=== PATIENT | female | born 1955 | race Caucasian/White ===

== ENCOUNTER 2019-02-25 08:30 | Day surgery (SDC) | payer OTHER ==
[~2019-02-25] VITALS: Ht 154.9 cm; Wt 45.8 kg
[~2019-02-25 08:30] MED LIST: BLACK COHOSH200 MG PO; BUSPIRONE HCL10 MG PO; CEPHALEXIN500 MG PO; DHEA25 MG PO; ESTRACE0.5 MG PO; FOLIC ACID1 MG PO; LORAZEPAM0.5 MG PO; OMEPRAZOLE20 MG PO; PYRIDIUM200 MG PO; SEROQUEL25 MG PO; TYLENOL EXTRA500 MG PO; VITAMIN D-32000 UNIT PO
[2019-02-25] MEDS ORDERED: CYMBALTA30 MG PO (08:50)
[2019-02-25] MEDS ORDERED: WELLBUTRIN SR100 MG PO (08:50)
[2019-02-25] MEDS ORDERED: VITAMIN D31000 UNIT PO (08:51)
[2019-02-25] MEDS ORDERED: VITAMIN B-12250 MC2 PO (08:51)
--- NOTE | 2019-02-25 10:43 | NUR ---
02/25/19 1043 Mayte Khan 1039 PATIENT ARRIVES TO PACU AWAKE OFF/ON, BUT VERY DROWSY. RESP EVEN AND UNLABORED. NC AT 2 LITERS. TURNED OFF AFTER ARRIVAL TO PACU.
--- NOTE | 2019-02-25 18:23 | OR ---
[facility] [address] [place], [place] [address] Signed DATE OF OPERATION: 02/25/2019 SURGEON: Marbin Russell MD PREOPERATIVE DIAGNOSES: 1. Internal hemorrhoids. 2. Sister with history of colonic polyps. 3. 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 4. Rectal hyperplastic polyps. 5. Change in bowel habits with alternating constipation and diarrhea. 6. Weight loss (7 pounds). POSTOPERATIVE DIAGNOSES: 1. Minimal internal hemorrhoids. 2. Tattoo distal right colon. PROCEDURE: Colonoscopy with random cold biopsies. ESTIMATED BLOOD LOSS: None. INDICATIONS: Hugh is a 63-year-old female, who came to us in February of 2018 for a colonoscopy. She had small internal hemorrhoids. She reminded me her sister had colonic polyps. She had a fairly significant tubulovillous adenomatous polyp in the distal right colon on the back of the fold. It took some technical effort to get that removed. We left a tattoo in that area. We wanted to come back and looked that over completely. She also had a few hyperplastic polyps in the rectum. She had very small internal hemorrhoid columns. No evidence of any diverticulosis. In the meantime, she has had a change in bowel habits with alternating constipation and diarrhea. She said the lab work and stool studies were done, but still pending and are in the office. She was asked to come back to see me then for that followup colonoscopy. I met with Hugh in the office. I gave her a pamphlet on colonoscopy. She recalls the test quite nicely along with its risks including, but not limited to gas bloating, crampy abdominal pain, bleeding, perforation requiring surgery, and missed diagnosis. She also remembers the need for IV conscious sedation. She said she was out of it for a day or two after the drugs. We explained to Hugh we just given up to keep people sedated sufficiently for the test. We will do our best to give her a small amount. She had expressed understanding and Electronically Signed By: MARBIN RUSSELL MD 02/25/19 1823 PATIENT NAME: HUGH GOMEZ OPERATIVE REPORT DATE OF : 57 REPORT #: [id number] PHYSICIAN: MARBIN RUSSELL MD PCP: SOMMER MILLER REPORT IS CONFIDENTIAL AND NOT TO BE RELEASED WITHOUT AUTHORIZATION [facility] [address] [place], [place] [address] Signed wished to proceed. PROCEDURE NOTE: Hugh was taken in to the endoscopy suite and placed in the left lateral decubitus position. She was given a total of 6 mg of Versed and 125 mcg of fentanyl. A digital rectal exam was performed and this was unremarkable. The adult colonoscope was inserted and advanced under direct visualization of camera. She has somewhat angulated splenic flexure. It takes a few minutes to get through that area. She required some extra sedation and abdominal compression. Her transverse colon and right colon are particularly long. Her prep was quite excellent. We could easily see the appendiceal orifice and the ileocecal valve. The scope was slowly withdrawn. Pictures were taken throughout for photodocumentation. We took several random biopsies throughout the colon because of the history of diarrhea. We could easily see her tattoo in the distal right colon. We carefully looked over that fold circumferentially several times. We could not see any evidence of any recurrent or persistent polypoid tissue. The scope was continued to be withdrawn all the way back into the rectum. There was no diverticulosis. No other polyps. Upon retroflexion of the scope, she has very minimal internal hemorrhoid tissue. Gas was then suctioned out. The colonoscope removed. Hugh tolerated the procedure quite well. RECOMMENDATIONS: I will see Hugh back in my office in 7 to 14 days to review her biopsy results. Marbin Russell MD ALB/MODL /[id number] cc: MD Sommer Dorsey PA Copies: MARBIN RUSSELL MD Electronically Signed By: MARBIN RUSSELL MD 02/25/19 1823 PATIENT NAME: HUGH GOMEZ OPERATIVE REPORT DATE OF : 57 REPORT #: [id number] PHYSICIAN: MARBIN RUSSELL MD PCP: SOMMER MILLER REPORT IS CONFIDENTIAL AND NOT TO BE RELEASED WITHOUT AUTHORIZATION [facility] [address] [place] [address] [place] [address] Signed SOMMER MILLER ~ Electronically Signed By: MARBIN RUSSELL MD 02/25/19 1823 PATIENT NAME: HUGH GOMEZ OPERATIVE REPORT DATE OF : 57 REPORT #: [id number] PHYSICIAN: MARBIN RUSSELL MD PCP: SOMMER MILLER REPORT IS CONFIDENTIAL AND NOT TO BE RELEASED WITHOUT AUTHORIZATION
--- NOTE | 2019-02-26 15:56 | PATH ---
[facility] [address] [place], [place] [address] Signed SPECIMEN(S): A COLON BIOPSY SPECIMEN SOURCE: A. COLON BIOPSY CLINICAL HISTORY: Preop: History of tubulovillous adenomatous polyp Feb 2018, change in bowel habits, diarrhea. Postop: Internal hemorrhoids. MICROSCOPIC DESCRIPTION: Sections reveal biopsies of colonic mucosa. The epithelial surface is intact and retains mucus-secreting ability. The basement membrane is not thickened. Glands are simple and tubular and reach all the way to muscularis mucosa. Lamina propria is minimal expanded by a population of plasma cells, lymphocytes, eosinophils and a few scattered neutrophils. No excess intra-epithelial lymphocytes, crypt abscesses, areas of fibrosis or granulomatous pseudomembranes are seen. There is no evidence of malignancy or atypia. LJA:cab FINAL PATHOLOGIC DIAGNOSIS: Mucosa, colon, random biopsy: - Minimal non-destructive chronic colitis without other distinguishing features. LJA:cab:C2NR GROSS DESCRIPTION: The specimen, labeled "RR, colon biopsy," is received in formalin and consists of four, 0.2-0.3 cm alvarez tissue fragments. Specimen is entirely submitted in cassette (A1). AM (under the direct supervision of a pathologist) The Gross Description was prepared using a voice recognition system. The report was reviewed for accuracy; however, sound-alike word errors, addition and/or deletions may occur. If there is any question about this report, please contact Client Services. PERFORMING LABORATORY: The technical component was performed by [facility], [address] [place] [id number] (Equip Maint Eng: Ynes Mondragon MD; CLIA# [id number]). [facility], [address] [address] (Equip Maint Eng: Abhishek Kay MD; CLIA# PATIENT NAME: HUGH GOMEZ PATHOLOGY DATE OF : 57 REPORT #: [id number] PHYSICIAN: DEYSI PATHOLOGY PCP: SAM MILLER REPORT IS CONFIDENTIAL AND NOT TO BE RELEASED WITHOUT AUTHORIZATION [address] [address] Signed [id number]). Diagnostician: Abhishek Kay MD Pathologist Electronically Signed 02/26/2019 Copies: ~ PATIENT NAME: HUGH GOMEZ PATHOLOGY DATE OF : 57 REPORT #: [id number] PHYSICIAN: DEYSI THOMPSON PCP: SAM MILLER REPORT IS CONFIDENTIAL AND NOT TO BE RELEASED WITHOUT AUTHORIZATION
== END 2019-02-25 11:10 | disposition home or self-care (01) ==
LOC: OPS 08:30 → DS 09:45 → OPS 09:45
PROVIDERS: Colon & Rectal Surgery
PROC: 0DBE8ZX Excision of Large Intestine, Via Natural or Artificial Opening Endoscopic, Diagnostic (ICD-10-PCS; principal; 2019-02-25 09:45)
DX: K52.9 Noninfective gastroenteritis and colitis, unspecified (principal); K64.8 Other hemorrhoids; R63.4 Abnormal weight loss; E78.00 Pure hypercholesterolemia, unspecified; E55.9 Vitamin D deficiency, unspecified; E03.9 Hypothyroidism, unspecified; F32.9 Major depressive disorder, single episode, unspecified; F41.9 Anxiety disorder, unspecified; Z86.010 Personal history of colon polyps; Z83.71 Family history of colonic polyps; Z98.890 Other specified postprocedural states; Z79.899 Other long term (current) drug therapy
CPT/HCPCS: 99153; G0500; J2250; J3010; J7121

== ENCOUNTER 2024-03-05 13:23 | Emergency (ER) | payer MEDICARE ==
[~2024-03-05] VITALS: Ht 154.9 cm; Wt 51.0 kg
[~2024-03-05 13:23] MED LIST changes: +CYMBALTA30 MG PO; +VITAMIN B-12250 MC2 PO; +VITAMIN D31000 UNIT PO; +WELLBUTRIN SR100 MG PO
[2024-03-05] MEDS ORDERED: SODIUM CHLORIDE 0.9% 500 ML IV ONE (13:45)
[2024-03-05] MEDS ORDERED: BUSPIRONE HCL5 MG PO (13:45)
[2024-03-05] MEDS ORDERED: BUPROPION XL150 MG PO (13:45)
[2024-03-05] MEDS ORDERED: FAMOTIDINE 20 MG/ 2 ML VIAL IV ONE (13:45)
[2024-03-05] MEDS ORDERED: diphenhydrAMINE HCL 50 MG/ML VIAL IV ONE (13:45)
[2024-03-05] MEDS ORDERED: DULOXETINE HCL30 MG PO (13:45)
[2024-03-05] MEDS ORDERED: methylPREDNISolone SOD SUCC 125 MG/2 ML VIAL IV ONE (13:45)
[2024-03-05 14:02] LABS: BASOPHILS 0.3 % (0-2); EOSINOPHILS 0.8 % (0-6); HEMATOCRIT 46.4 % (35.0-50.0); HEMOGLOBIN 15.7 g/dL (12.0-18.0); LYMPHOCYTES 31.1 % (24-44); MCH 30.6 (27-36); MCHC 33.9 g/dl (30-36); MCV 90.3 fl (81-99); NEUTROPHILS 60.8 % (39-80); PLATELET COUNT 292 K/uL (140-440); RBC 5.14 M/ul (4.3-5.7); RDW 12.4 (10.5-15.0)
[2024-03-05 14:17] LABS: ALBUMIN 3.7 g/dL (3.4-5.0); ALBUMIN/GLOBULIN RATIO 1.09 (1.1-2.4); ANION GAP 13.9 (7-21); BILIRUBIN, TOTAL 0.3 ng/dL (0.2-1.0); BUN/CREATININE RATIO 9.9 (6.0-28.6); CALCIUM 9.4 mg/dL (8.5-10.1); CREATININE, SERUM 1.11 mg/dL (0.55-1.02); POTASSIUM 3.9 mmol/L (3.5-5.1); PROTEIN, TOTAL 7.1 g/dL (6.4-8.2)
[2024-03-05] MEDS ORDERED: EPIPEN 2-P0.3 MG/0.3 IM (15:46)
[2024-03-05] MEDS ORDERED: PREDNISONE20 MG PO (15:46)
[2024-03-05 15:54] VITALS: BP 119/68
== END 2024-03-05 15:54 | disposition home or self-care (01) ==
LOC: ED 13:23
PROVIDERS: Emergency Medicine
DX: T63.441A Toxic effect of venom of bees, accidental (unintentional), initial encounter (principal); L29.89 Other pruritus; R23.8 Other skin changes; Z79.899 Other long term (current) drug therapy
CPT/HCPCS: 36415; 80053; 85025; 96374; 96375; 99283-25; J1200; J2919; J7040

== ENCOUNTER 2024-06-18 08:55 | Day surgery (SDC) | payer MEDICARE, OTHER ==
[2024-06-12 10:18] VITALS: BP 125/74
[~2024-06-18] VITALS: Ht 154.9 cm; Wt 50.9 kg
[~2024-06-18 08:55] MED LIST changes: +BUPROPION XL150 MG PO; +BUSPIRONE HCL5 MG PO; +DULOXETINE HCL30 MG PO; +EPIPEN 2-P0.3 MG/0.3 IM; +IBLOOD GLUCOSE TEST STRIP 1 EA TEST VI PRN; +LACTATED RINGER'S 1,000 ML IV SCH; +LIDOCAINE HCL 1% 5 ML SDV INJ ONE; +OSTERA TABLET1 EACH PO; +PREDNISONE20 MG PO; +RENA-VITE RX T1 EACH PO
[2024-06-18 09:08] VITALS: BP 121/57
--- NOTE | 2024-06-18 11:46 | NUR ---
1100-PT LAYING IN BED AWAKE. UPDATED PT SURGICAL WAIT TIME. NO OTHER NEEDS AT THIS TIME. AT BEDSIDE. NO OTHER NEEDS AT THIS TIME. CALL LIGHT WITHIN REACH.
[2024-06-18] MEDS ORDERED: LIDOCAINE HCL 2% 5 ML SDV ONE (12:31)
[2024-06-18] MEDS ORDERED: propofoL 200 MG/20 ML VIAL ONE ×2 (12:31→13:11)
[2024-06-18] MEDS ORDERED: ePHEDrine sulfate 50 MG/ML AMP ONE (12:56)
--- NOTE | 2024-06-18 13:34 | NUR ---
06/18/24 1334 Talisha Morales 1326-PATIENT ARRIVED TO PACU ON 2L NC RR EVEN. PATIENT REACTIVE TO VERBAL STIMULI OPENING EYES ORIENTED TO PACU LAYING LEFT LATERAL. SR. IVF INFUSING. ABDOMEN SOFT 1328-PATIENT AWAKE MOVING LEGS IN BED HOB ELEVATED. ENCOURAGED TO PASS GAS. 1333-PATIENT AWAKE REPORTS "STOMACH HURTS" ENCOURAGED TO PASS GAS. PLACED ON RA 100% RR EVEN
[2024-06-18 14:13] VITALS: BP 132/72
--- NOTE | 2024-06-18 14:39 | OR ---
[facility] [address] [place], [place] [address] Signed DATE OF OPERATION: 06/18/2024 SURGEON: Marbin Russell MD PREOPERATIVE DIAGNOSES: 1. Epigastric abdominal pain and heartburn. 2. Personal history of colonic polyps in 2018. POSTOPERATIVE DIAGNOSES: 1. Mild gastroduodenitis. 2. Mild to moderate distal esophagitis. 3. Small hiatal hernia. 4. Long redundant colon. 5. 8 x 12 mm sessile polyp distal right colon at tattoo (snare, clips x3). 6. 4 mm polyp distal right colon. PROCEDURES: 1. EGD with CLOtest and biopsies of the duodenum, pyloric bulb, antrum and distal esophagus. 2. Colonoscopy with snare polypectomy, hot biopsy and application of clips x3. ESTIMATED BLOOD LOSS: None. INDICATIONS: Hugh is a 68-year-old female, asked to see me for both upper and lower endoscopy. She told me she has a long history of OCD and panic attacks. She has been worried about various things and ended up with heartburn and significant epigastric abdominal pain. Her H pylori was negative. She took omeprazole and that helped. She is worried she might have an ulcer. However, she is inconsistent with using the omeprazole. She says sometimes she is upset enough she actually gets diarrhea. Thankfully, that is resolved currently. In addition, I helped her with a colonoscopy in 2018 and again in 2019. Unfortunately, we could not access the old records on the computer that day in the office. She told me I was worried about the polyp, so I brought her back a year later. She tells me there is no family history of colon cancer or polyps. Overall, she thinks she is feeling better. In the office, I gave her pamphlets on both upper and lower endoscopy. We had reviewed the nature of the two tests. There is risk including, but not limited to gas bloating, crampy abdominal pain, bleeding, perforation requiring surgery, and missed diagnosis. We also reviewed the written instructions for the bowel prep line by line. It is the same bowel prep she took two times previously. In Electronically Signed By: MARBIN RUSSELL MD 06/18/24 1439 PATIENT NAME: HUGH GOMEZ OPERATIVE REPORT DATE OF : 57 REPORT #: [id number] PHYSICIAN: MARBIN RUSSELL MD PCP: SAM MILLER REPORT IS CONFIDENTIAL AND NOT TO BE RELEASED WITHOUT AUTHORIZATION [facility] [address] [place], [place] [address] Signed addition, because of her significant anxiety, panic attacks and other issues, we asked for monitored anesthesia care with propofol infusion. She thought that was a house decision. She actually did very well in that regard today. We actually needed it because of her long redundant colon. She did require preoperative blood work and an EKG. She understands an adult person has to take her home afterwards. She had expressed understanding and wished to proceed. DESCRIPTION OF PROCEDURE: Hugh was taken into the endoscopy suite and placed in the supine semi-recumbent position. A bite block was utilized for the case. The posterior oropharynx was anesthetized with lidocaine spray. A bite block was used for the case. The adult gastroscope was introduced and advanced under direct visualization of the camera without difficulty into the duodenum. Because of the intermittent history of diarrhea, we went ahead and took a biopsy of the duodenum. We could see some mild inflammation in the pyloric bulb and throughout the stomach. We went ahead and took a biopsy of the pyloric bulb as well as the antrum for pathologic review. An additional biopsy came out of the antrum for CLOtest. Upon retroflexion of the scope, we could easily see a small hiatal hernia. The scope was withdrawn up through the area of the GE junction, which was compliant without stricture. She was coughing just a little bit and we could not really measure the hiatal hernia to any significant degree. I would say no more than 3 cm. She does have some mild disruption and irritation along the Z-line. She also had some streaky inflammatory changes coming up from the Z-line into the distal esophagus. There was no Mehta's mucosa. We went ahead and took a biopsy in the distal esophagus. The middle and upper esophagus were unremarkable. Her vocal cords and arytenoids were unremarkable. After this, the gas was suctioned out and the gastroscope removed. Hugh tolerated the procedure quite well. Hugh was then rotated into the left lateral decubitus position. She was maintained on propofol infusion per our nurse senior manager quality assurance. A digital rectal exam was performed. This was unremarkable. No external hemorrhoids. Good sphincter tone. No masses. The adult colonoscope was then introduced and advanced all around into the cecum under direct visualization of the camera. She has a long redundant colon and her colon is somewhat narrow because she is so slight of build. It took extra propofol as well as abdominal compression to advance the scope. We had to pause multiple times because of the bradycardia. Thankfully, her prep was quite good. We could easily see the appendiceal orifice and the ileocecal valve. The scope was then slowly withdrawn. She had two polyps in her distal right colon. One was associated with the previous tattoo. The small polyp was maybe 4 mm in diameter and we easily removed it with the hot biopsy forceps. We had to use the snare twice to get the sessile polyp out overlying the tattoo. It was probably 8 x 12 mm, maybe slightly larger. We were able to capture it in our net and put it in the same jar. We went back and it left a fairly deep and large defect in the mucosa, so we brought it together with three clips. The scope was then Electronically Signed By: MARBIN RUSSELL MD 06/18/24 1439 PATIENT NAME: HUGH GOMEZ OPERATIVE REPORT DATE OF : 57 REPORT #: [id number] PHYSICIAN: MARBIN RUSSELL MD PCP: SAM MILLER REPORT IS CONFIDENTIAL AND NOT TO BE RELEASED WITHOUT AUTHORIZATION [facility] [address] [place] [address] Signed withdrawn and we did not find any diverticula. The rectum was unremarkable. Upon retroflexion of the scope, really no additional pathology noted above the anal canal. After this, the gas was suctioned out and the colonoscope removed. Hugh tolerated the colonoscopy quite well. RECOMMENDATIONS: I will see Hugh back in my office in 7 to 14 days to review her results. She should always use monitored anesthesia care in the future particularly because of her long redundant colon. Marbin Russell MD ALB/MODL /[id number] cc: LEIXS Blackman MD Copies: SAM MILLER ANDREW L MD ~ Electronically Signed By: MARBIN RUSSELL MD 06/18/24 1439 PATIENT NAME: HUGH GOMEZ OPERATIVE REPORT DATE OF : 57 REPORT #: [id number] PHYSICIAN: MABRIN RUSSELL MD PCP: SAM MILLER REPORT IS CONFIDENTIAL AND NOT TO BE RELEASED WITHOUT AUTHORIZATION
--- NOTE | 2024-06-23 16:34 | PATH ---
[facility] [address] [place], [place] [address] Signed SPECIMEN(S): A DUODENAL BIOPSY SPECIMEN(S): B PYLORIC BULB BIOPSY SPECIMEN(S): C ANTRUM BIOPSY SPECIMEN(S): D DISTAL LOWER ESOPHAGUS BIOPSY SPECIMEN(S): E DISTAL RIGHT COLON POLYP SPECIMEN SOURCE: A. DUODENAL BIOPSY B. PYLORIC BULB BIOPSY C. ANTRUM BIOPSY D. DISTAL LOWER ESOPHAGUS BIOPSY E. DISTAL RIGHT COLON POLYP CLINICAL HISTORY: Epigastric pain, heartburn, history of colon polyps, history of diarrhea. Post gastritis, distal esophagitis, colon polyps. FINAL PATHOLOGIC DIAGNOSIS: A. Duodenal biopsy: - Benign duodenal mucosa, negative for specific diagnostic abnormality. B. Pyloric bulb biopsy: - Gastric mucosa with superficial mild chronic gastritis (gastric heterotopia). - Benign duodenal mucosa. - A Helicobacter pylori immunostain is negative for organisms. C. Antrum biopsy: - Benign gastric mucosa with superficial mild chronic gastritis. - Negative for evidence of Helicobacter organisms on routine HE-stained sections. D. Distal lower esophagus biopsy: - Benign esophageal epithelium, negative for increased epithelial eosinophils. - Negative for glandular mucosa. E. Distal right colon polyp: - Tubulovillous adenoma (multiple fragments). JVR:smn MICROSCOPIC EXAMINATION: Histologic sections of all submitted blocks are examined by light microscopy. These findings, together with the gross examination, support the pathologic diagnosis. A Helicobacter pylori immunostain is performed with appropriate positive and negative controls on block B1 and is negative for organisms. PATIENT NAME: HUGH GOMEZ PATHOLOGY DATE OF : 57 REPORT #: [id number] PHYSICIAN: DEYSI THOMPSON PCP: SAM MILLER REPORT IS CONFIDENTIAL AND NOT TO BE RELEASED WITHOUT AUTHORIZATION [facility] [address] [place], [place] [address] Signed JVR:jf GROSS DESCRIPTION: A. The specimen, labeled and designated "Georgi, R, duodenal biopsy," is received in formalin and consists of one alvarez soft tissue fragment, 0.4 cm. Entirely submitted in (A1). B. The specimen, labeled and designated "Georgi, R, pyloric bulb biopsy," is received in formalin and consists of two alvarez soft tissue fragments, ranging from 0.2-0.3 cm. Entirely submitted in (B1). C. The specimen, labeled and designated "Georgi, R, antrum biopsy," is received in formalin and consists of one alvarez soft tissue fragment, 0.7 cm. Entirely submitted in (C1). D. The specimen, labeled and designated "Georgi, R, distal lower esophagus biopsy," is received in formalin and consists of one alvarez soft tissue fragment, 0.4 cm. Entirely submitted in (D1). E. The specimen, labeled and designated "Georgi, R, distal right colon polyp," is received in formalin and consists of multiple alvarez soft tissue fragments, 0.2-1.5 cm. The largest polyp's inked black the suspected margin and sectioned. Entirely submitted in (E1). AB (under the direct supervision of a pathologist) The Gross Description was prepared using a voice recognition system. The report was reviewed for accuracy; however, sound-alike word errors, addition and/or deletions may occur. If there is any question about this report, please contact Client Services. ADDITIONAL NOTES: Immunohistochemical and/or in situ hybridization studies were performed on this case with the appropriate positive controls that react as expected. This test was developed and its performance characteristics determined by [facility]. It has not been cleared or approved by the U.S. Food and Drug Administration. The FDA has determined that such clearance or approval is not necessary. This test is used for clinical purposes. It should not be regarded as investigational or for research. [facility] is certified under the Clinical Laboratory Improvement Amendments of 1988 (CLIA) as qualified to perform high complexity clinical laboratory testing. This assay has not been validated for specimens that have been decalcified. PERFORMING LABORATORY: Technical component was performed by [facility], [facility] Slava Rubin, PATIENT NAME: HUGH GOMEZ PATHOLOGY DATE OF : 57 REPORT #: [id number] PHYSICIAN: CHANDNIMailbox JAY PCP: SAM MILLER REPORT IS CONFIDENTIAL AND NOT TO BE RELEASED WITHOUT AUTHORIZATION [facility] [address] [place] [address] [place] [address] (CLIA# [id number]). Professional interpretation was performed by [facility], [address] [place] [address], [place] [address] (CLIA#: [id number]). Diagnostician: Giuspepe Mcbride MD Pathologist Electronically Signed 06/23/2024 Copies: ~ PATIENT NAME: HUGH GOMEZ PATHOLOGY DATE OF : 57 REPORT #: [id number] PHYSICIAN: DEYSI PATHOLOGY PCP: SAM MILLER REPORT IS CONFIDENTIAL AND NOT TO BE RELEASED WITHOUT AUTHORIZATION
== END 2024-06-18 14:15 | disposition home or self-care (01) ==
LOC: DS 08:55
PROVIDERS: ATTEND Colon & Rectal Surgery
PROC: 0DB58ZX Excision of Esophagus, Via Natural or Artificial Opening Endoscopic, Diagnostic (ICD-10-PCS; 2024-06-18)
PROC: 0DBF8ZZ Excision of Right Large Intestine, Via Natural or Artificial Opening Endoscopic (ICD-10-PCS; 2024-06-18)
PROC: 0DB98ZX Excision of Duodenum, Via Natural or Artificial Opening Endoscopic, Diagnostic (ICD-10-PCS; principal; 2024-06-18 10:30)
PROC: 0DB78ZX Excision of Stomach, Pylorus, Via Natural or Artificial Opening Endoscopic, Diagnostic (ICD-10-PCS; 2024-06-18 10:30)
DX: Z12.11 Encounter for screening for malignant neoplasm of colon (principal); D12.2 Benign neoplasm of ascending colon; K63.5 Polyp of colon; K29.50 Unspecified chronic gastritis without bleeding; K63.89 Other specified diseases of intestine; K29.90 Gastroduodenitis, unspecified, without bleeding; K44.9 Diaphragmatic hernia without obstruction or gangrene; K21.00 Gastro-esophageal reflux disease with esophagitis, without bleeding; E03.9 Hypothyroidism, unspecified; E78.2 Mixed hyperlipidemia; F42.9 Obsessive-compulsive disorder, unspecified; F41.0 Panic disorder [episodic paroxysmal anxiety]; Z86.0100 Personal history of colon polyps, unspecified; Z79.899 Other long term (current) drug therapy; Z90.49 Acquired absence of other specified parts of digestive tract; Z90.710 Acquired absence of both cervix and uterus
CPT/HCPCS: 00813; 36415; 87077; 88305; 88342; J2003; J2704; J7121